=== PATIENT | female | born 1990 | race Caucasian/White ===

== ENCOUNTER 2016-11-06 09:53 | Emergency (ER) | payer BC, MEDICAID ==
[2016-11-06] MEDS ORDERED: IPRATROPIUM/ALBUTEROL 3 ML NEB INH ONE (10:24)
[2016-11-06] MEDS ORDERED: IPRATROPIUM/ALBUTEROL 3 ML NEB INH STA (10:35)
[2016-11-06] MEDS ORDERED: DEXAMETHASONE 10 MG/ML VIAL PO STA (10:36)
--- NOTE | 2016-11-06 10:37 | ED Physician Documentation ---
PD HPI DYSPNEA - Stated complaint Stated Complaint: cough - Chief complaint Chief Complaint: Resp - History obtained from History obtained from: Patient, Family - History of Present Illness Timing - onset during: Rest Timing - duration: Days Timing - details: Gradual onset, Still present Inciting event(s): URI Improved by: Inhaler/neb Worsened by: Exertion, Coughing Associated symptoms: Cough, Wheezing, Chest pain / discomfort Similar symptoms before: Diagnosis (asthma) Recently seen: Not recently seen Review of Systems Constitutional: denies: Fever, Chills Eyes: denies: Decreased vision Ears: denies: Ear pain Nose: reports: Rhinorrhea / runny nose, Congestion Throat: denies: Sore throat Cardiac: reports: Chest pain / pressure. 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 - Present Medications Home Medications: Ambulatory Orders Medication Instructions Recorded Confirmed Albuterol Sulfate [Proventil Hfa 1 - 2 puffs IH Q4H PRN #1 03/17/16 11/06/16 Inhaler] [email or web address] traZODone [Desyrel] 50 mg PO DAILY 03/17/16 03/17/16 Albuterol Sulf [Ventolin Hfa 1 - 2 puffs INH Q4HR PRN #1 inhaler 11/06/16 Inhaler] Azithromycin [Zithromax] 250 mg PO DAILY #6 tablet 11/06/16 Benzonatate [Tessalon] 100 - 200 mg PO TID PRN #20 capsule 11/06/16 Lamotrigine 25 mg DAILY 11/06/16 11/06/16 Topiramate [Topamax] 50 mg BID 11/06/16 11/06/16 predniSONE [Deltasone] 10 mg PO DAILY #26 tablet 11/06/16 - Allergies Allergies/Adverse Reactions: Allergies Allergy/AdvReac Type Severity Reaction Status Date / Time amoxicillin Allergy Rash Verified 03/17/16 12:36 - Social History Does the pt smoke?: No Smoking Status: Never smoker Does the pt drink ETOH?: No Does the pt have substance abuse?: No - Immunizations Immunizations are current?: Yes PD ED PE NORMAL - Vitals Vital signs reviewed: Yes (tachy ) - General General: Alert and oriented X 3, No acute distress, Well developed/nourished - HEENT HEENT: Atraumatic, PERRL, EOMI, Other (mild inflamtion normal landmarks ) - Neck Neck: Supple, no meningeal sign, No bony TTP - Cardiac Cardiac: RRR, No murmur - Respiratory Respiratory: No respiratory distress, Other (diminished breath sounds. ) - Abdomen Abdomen: Soft, Non tender - Back Back: No CVA TTP, No spinal TTP - Derm Derm: Normal color, No rash - Extremities Extremities: No deformity, No edema - Neuro Neuro: No motor deficit, No sensory deficit - Psych Psych: Normal mood, Normal affect Results - Vitals Vitals: Vital Signs - 24 hr 11/06/16 11/06/16 11/06/16 10:00 12:25 13:27 Temperature 36.7 C Heart Rate 114 H 96 92 Respiratory 20 14 16 Rate Blood Pressure 116/71 96/64 106/57 L O2 Saturation 98 98 98 Oxygen O2 Source Room air - Rads (name of study) 2 veiw chest Radiology: Prelim report reviewed (Impression: Normal chest for age and body size, stable. No hyperinflation, increased bronchovascular markings or other findings to suggest asthma or reactive airway disease.), EMP read indepedently, See rad report PD MEDICAL DECISION MAKING - ED course Complexity details: reviewed old records, reviewed results, re-evaluated patient , considered differential, d/w patient, d/w family ED course: 26 y/o female with a history of asthma has developed a cough productive of thick phlem and shortness of breath. Her lung exam is notable for shallow breathing and her response to the treatment is not impressive. I suspect she is splinting with her breathing to prevent a cough response as this hurts to cough. She is placed on a course of prednisone and zithromax as well as tessalon . Departure - Departure Disposition: 01 Home, Self Care Clinical Impression: Bronchitis Asthma Qualifiers: Asthma severity: moderate persistent Asthma complication type: with acute exacerbation Qualified Code(s): J45.41 - Moderate persistent asthma with (acute ) exacerbation Condition: Stable Instructions: ED Bronchitis Asthmatic Follow-Up: Ron Killian MD [Primary Care Provider] - Prescriptions: Albuterol Sulf [Ventolin Hfa Inhaler] 1 - 2 puffs INH Q4HR PRN #1 inhaler PRN Reason: Shortness Of Air/Wheezing predniSONE [Deltasone] 10 mg PO DAILY #26 tablet Benzonatate [Tessalon] 100 - 200 mg PO TID PRN #20 capsule PRN Reason: Cough Azithromycin [Zithromax] 250 mg PO DAILY #6 tablet
[2016-11-06] MEDS ORDERED: DEXAMETHASONE 10 MG/ML VIAL ONE (10:53)
[2016-11-06] MEDS ORDERED: CHERRY SYRUP 10 ML UDC PO ONE (10:53)
--- NOTE | 2016-11-06 11:20 | XRAY Preliminary Report ---
Exam: XR Chest 2 View PA/LAT IMPRESSION: Normal chest for age and body size, stable. No hyperinflation, increased bronchovascular markings or other findings suggesting asthma/reactive airway disease. [facility] SITE ID: [id number]
--- NOTE | 2016-11-06 11:22 | XRAY Report ---
EXAM: CHEST RADIOGRAPHY, 2 VIEWS EXAM DATE: 11/06/2016 10:51 AM. CLINICAL HISTORY: Cough and wheezing in a 25-year-old female with history of asthma. COMPARISON: 03/17/2016 and previous. TECHNIQUE: Upright PA and lateral views. FINDINGS: Lungs/Pleura: No focal opacities evident. No pleural effusion. No pneumothorax. Normal volumes. Mediastinum: Heart and mediastinal contours are unremarkable. No adenopathy or pulmonary vascular con gestion. Other: Trachea is midline. Osseous structures are unremarkable. IMPRESSION: Normal chest for age and body size, stable. No hyperinflation, increased bronchovascular markings or other findings suggesting asthma/reactive airway disease. [facility] Referring Provider Line: [phone] SITE ID: [id number]
[2016-11-06 13:28] VITALS: BP 106/57
== END 2016-11-06 13:22 | disposition home or self-care (01) ==
LOC: ED 09:53
DX: J40 Bronchitis, not specified as acute or chronic (principal); J45.41 Moderate persistent asthma with (acute) exacerbation; Z87.01 Personal history of pneumonia (recurrent)
CPT/HCPCS: 71020; 94640; 99283; A9270; J7620

== ENCOUNTER 2017-01-12 08:14 | Outpatient (CLI) | payer BC | END 2017-01-12 08:15 | disposition home or self-care (01) | LOC: LAB.N 08:14 | PROVIDERS: ATTEND Family Medicine | DX: Z77.21 Contact with and (suspected) exposure to potentially hazardous body fluids (principal) | CPT/HCPCS: 36415; 86317; 86704; 86709; 86803; 87340; 87389 ==

== ENCOUNTER 2017-01-12 10:03 | Outpatient (CLI) | payer BC | END 2017-01-12 10:04 | disposition critical access hospital (66) | LOC: EMS 10:03 | PROVIDERS: ATTEND Surgery | DX: R55 Syncope and collapse (principal); R51 Headache | CPT/HCPCS: A0425; A0429 ==

== ENCOUNTER 2017-01-12 10:20 | Emergency (ER) | payer BC ==
[2017-01-12 11:42] LABS: BILIRUBIN,URINE NEGATIVE (NEGATIVE)
[2017-01-12 11:44] LABS: UA w/ MICROSCOPIC CHARGE YES
[2017-01-12 11:45] LABS: HCG UR QUAL NEGATIVE
[2017-01-12] MEDS ORDERED: SODIUM CHLORIDE 0.9% 1,000 ML IV ONE (11:49)
[2017-01-12 11:51] LABS: UR CULTURE IF IND NOT INDICATED
[2017-01-12 12:20] LABS: BASOPHILS # (AUTO) 0.1 10^3/uL (0.0-0.1); BASOPHILS % (AUTO) 0.8 %; EOSINOPHILS # (AUTO) 0.6 10^3/uL (0.0-0.7); EOSINOPHILS % (AUTO) 6.6 %; HCT - HEMATOCRIT 41.6 % (37.0-47.0); HGB - HEMOGLOBIN 13.9 g/dL (12.0-16.0); LYMPHOCYTES # (AUTO) 2.6 10^3/uL (1.5-3.5); LYMPHOCYTES % (AUTO) 30.1 %; MEAN CORPUSCULAR HEMOGLOBIN 29.4 pg (27.0-31.0); MEAN CORPUSCULAR HGB CONC 33.4 g/dL (32.0-36.0); MEAN CORPUSCULAR VOLUME 87.9 fL (81.0-99.0); MEAN PLATELET VOLUME 7.4 fL (7.9-10.8); MONOCYTES # (AUTO) 0.6 10^3/uL (0.0-1.0); MONOCYTES % (AUTO) 6.5 %; NEUTROPHILS # (AUTO) 4.9 10^3/uL (1.5-6.6); RED BLOOD COUNT 4.74 10^6/uL (4.20-5.40); RED CELL DISTRIBUTION WIDTH 13.3 % (12.0-15.0); UNCORRECTED WHITE BLOOD COUNT 8.7 x10^3/uL; WHITE BLOOD COUNT 8.7 x10^3/uL (4.8-10.8)
[2017-01-12 12:31] LABS: ALBUMIN/GLOBULIN RATIO 1.7 (1.0-2.2); BILIRUBIN,TOTAL 0.7 mg/dL (0.2-1.0); CALCIUM 9.4 mg/dL (8.5-10.3); CREATININE 0.6 mg/dL (0.4-1.0); TOTAL PROTEIN 7.1 g/dL (6.7-8.2)
[2017-01-12] MEDS ORDERED: ONDANSETRON 4 MG/2 ML VIAL IVP STA (12:44)
[2017-01-12] MEDS ORDERED: NITROFURANTOIN MACRO 100 MG CAPSULE PO STA (12:44)
[2017-01-12] MEDS ORDERED: NITROFURANTOIN MACRO 100 MG CAPSULE PO ONE (13:13)
[2017-01-12] MEDS ORDERED: ONDANSETRON 4 MG/2 ML VIAL ONE (13:14)
--- NOTE | 2017-01-12 14:17 | ED Physician Documentation ---
PD HPI SYNCOPE - Stated complaint Stated Complaint: SYNCOPE - Chief complaint Chief Complaint: Neuro - History obtained from History obtained from: Patient, EMS - History of Present Illness Witnessed: Witnessed Timing - onset: Today (Just prior to arrival) Duration: Seconds Preceding symptoms: Nausea / vomiting (Nausea, without vomiting.), Light headed Associated symptoms: No: Seizure, Incontinant of urine, Chest pain, Palpitations , Abdominal pain Injury occurred: None Similar symptoms before: No diagnosis (She reports having a long history of fainting spells.) - Additional information Additional information: The patient is a 26-year-old female who arrives via ambulance after a witnessed syncopal episode while in class just prior to arrival. She had lightheadedness and nausea prior to the onset of her symptoms. She denies chest pain, palpitations, shortness of breath. She had undergone blood draw for lab work one hour previously. She had become lightheaded and "dizzy" during the lab draw. It was thought to be a vasovagal episode. However it was one hour later that she passed out while sitting in class. She reports having low-grade fever to 101 2 days ago, with associated chills. She had vomiting 2 yesterday. She reports having dysuria and frequency of urination for the past 2 weeks. She denies abdominal pain, cough, or diarrhea. Her last menstrual period was one week ago. She was seen by her primary physician yesterday, and lab work was ordered for today. The patient reports having a long history of similar "fainting spells". She denies history of seizures. Review of Systems Constitutional: reports: Fever (2 days ago), Chills (2 days ago) Ears: denies: Ear pain Nose: denies: Congestion Throat: denies: Sore throat Cardiac: denies: Chest pain / pressure, Palpitations Respiratory: denies: Dyspnea, Cough GI: reports: Nausea, Vomiting (yesterday). denies: Abdominal Pain : reports: Dysuria, Frequency, LMP (1 week ago) Skin: denies: Rash Musculoskeletal: denies: Back pain Neurologic: reports: Syncope. 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 - Present Medications Home Medications: Ambulatory Orders Medication Instructions Recorded Confirmed traZODone [Desyrel] 50 mg PO DAILY 03/17/16 01/12/17 Albuterol Sulf [Ventolin Hfa 1 - 2 puffs INH Q4HR PRN #1 inhaler 11/06/16 Inhaler] Lamotrigine 100 mg DAILY 11/06/16 01/12/17 Topiramate [Topamax] 50 mg BID 11/06/16 01/12/17 Fluconazole [Diflucan] 150 mg PO ONCE #1 tablet 01/12/17 Nitrofurantoin [Macrobid] 100 mg PO BID #10 capsule 01/12/17 - Allergies Allergies/Adverse Reactions: Allergies Allergy/AdvReac Type Severity Reaction Status Date / Time amoxicillin Allergy Rash Verified 01/12/17 10:29 - Social History Does the pt smoke?: No Smoking Status: Never smoker Does the pt drink ETOH?: No Does the pt have substance abuse?: No - Immunizations Immunizations are current?: Yes PD ED PE NORMAL - Vitals Vital signs reviewed: Yes (normal) - General General: Alert and oriented X 3, Well developed/nourished - HEENT HEENT: Atraumatic, EOMI, Pharynx benign - Neck Neck: Supple, no meningeal sign, No adenopathy - Cardiac Cardiac: RRR, No murmur - Respiratory Respiratory: No respiratory distress, Clear bilaterally - Abdomen Abdomen: Soft, Non tender, No organomegaly - Back Back: No CVA TTP - Derm Derm: No rash - Extremities Extremities: No edema, No calf tenderness / cord - Neuro Neuro: Alert and oriented X 3, No motor deficit, No sensory deficit, Normal speech Results - Vitals Vitals: Vital Signs - 24 hr 01/12/17 01/12/17 12:35 14:20 Heart Rate 76 Heart Rate [ 77 Sitting] Heart Rate [ 86 Standing] Heart Rate [ 71 Supine] Respiratory 18 Rate Blood Pressure 107/61 Blood Pressure 104/68 [Sitting] Blood Pressure 102/81 H [Standing] Blood Pressure 101/61 [Supine] O2 Saturation 100 Oxygen O2 Source Room air - Labs Labs: Laboratory Tests 01/12/17 01/12/17 01/12/17 11:06 11:06 12:12 WBC 8.7 RBC 4.74 Hgb 13.9 Hct 41.6 MCV 87.9 MCH 29.4 MCHC 33.4 RDW 13.3 Plt Count 302 MPV 7.4 L Neut # 4.9 Lymph # 2.6 [place] # 0.6 Eos # 0.6 Baso # 0.1 Absolute Nucleated RBC 0.00 Nucleated RBCs 0.0 Sodium Potassium Chloride Carbon Dioxide Anion Gap BUN Creatinine Estimated GFR (MDRD) Glucose Calcium Total Bilirubin AST ALT Alkaline Phosphatase Total Protein Albumin Globulin Albumin/Globulin Ratio Lipase Urine Color YELLOW Urine Clarity HAZY Urine pH 6.0 Ur Specific [place] 1.010 1.010 Urine Protein NEGATIVE Urine Glucose (UA) NEGATIVE Urine Ketones NEGATIVE Urine Occult Blood SMALL H Urine Nitrite NEGATIVE Urine Bilirubin NEGATIVE Urine Urobilinogen 0.2 (NORMAL) Ur Leukocyte Esterase NEGATIVE Urine RBC 0-5 Urine WBC 4-5 Ur Squamous Epith Cells MANY Squamous H Urine Bacteria Many H Ur Microscopic Review INDICATED Urine Culture Comments NOT INDICATED Urine HCG, Qual NEGATIVE 01/12/17 12:12 WBC RBC Hgb Hct MCV MCH MCHC RDW Plt Count MPV Neut # Lymph # [place] # Eos # Baso # Absolute Nucleated RBC Nucleated RBCs Sodium 141 Potassium 4.0 Chloride 107 Carbon Dioxide 28 Anion Gap 6.0 BUN 11 Creatinine 0.6 Estimated GFR (MDRD) 120 Glucose 83 Calcium 9.4 Total Bilirubin 0.7 AST 20 ALT 24 Alkaline Phosphatase 62 Total Protein 7.1 Albumin 4.5 Globulin 2.6 Albumin/Globulin Ratio 1.7 Lipase 33 Urine Color Urine Clarity Urine pH Ur Specific [place] Urine Protein Urine Glucose (UA) Urine Ketones Urine Occult Blood Urine Nitrite Urine Bilirubin Urine Urobilinogen Ur Leukocyte Esterase Urine RBC Urine WBC Ur Squamous Epith Cells Urine Bacteria Ur Microscopic Review Urine Culture Comments Urine HCG, Qual PD MEDICAL DECISION MAKING - ED course Complexity details: reviewed results, re-evaluated patient, considered differential, d/w patient ED course: The patient's presentation is significant for a brief syncopal episode, associated with dehydration, and likely urinary tract infection. Her presentation does not suggest seizure, bacteremia, or pyelonephritis. CBC is normal, as is chemistry panel. Her urinalysis is positive for bacteriuria, but also with presence of squamous epithelial cells. Given her symptoms with recent dysuria, frequency of urination, and low-grade fever, I will initiate treatment for suspected urinary tract infection, pending urine culture results. Treatment in the emergency department included administration of normal saline 1 L IV, Zofran 4 mg IV, and Macrobid 100 mg orally. She is being discharged with prescription for Macrobid. I discussed with her and her family the results of her lab workup, outpatient treatment and follow-up, as well as potentially worrisome signs or symptoms that should prompt reevaluation in the emergency department. Departure - Departure Disposition: Home, Self Care Clinical Impression: Syncope Qualifiers: Syncope type: unspecified Qualified Code(s): R55 - Syncope and collapse Urinary tract infection Qualifiers: Urinary tract infection type: acute cystitis Hematuria presence: without hematuria Qualified Code(s): N30.00 - Acute cystitis without hematuria Condition: Stable Instructions: ED Dizziness UKO, ED UTI Cystitis Female Follow-Up: Ron Killian MD [Credentialed Staff Provider] - Prescriptions: Fluconazole [Diflucan] 150 mg PO ONCE #1 tablet Nitrofurantoin [Macrobid] 100 mg PO BID #10 capsule Comments: Drink plenty of fluids, including cranberry juice. Take Macrobid twice daily as prescribed. You can use Diflucan as prescribed if needed for yeast infection associated with taking the antibiotic. Follow up with your primary physician within 1-2 weeks. Call to schedule appointment. Return to the emergency department if you develop increasing dizziness, fever with shaking chills, persistent vomiting, or otherwise worsening symptoms. Forms: Activity restrictions Discharge Date/Time: 01/12/17 14:35
[2017-01-12 14:34] VITALS: BP 101/61
== END 2017-01-12 14:35 | disposition home or self-care (01) ==
LOC: EDUNIT# → ED 10:20
DX: R55 Syncope and collapse (principal); N30.00 Acute cystitis without hematuria; F50.9 Eating disorder, unspecified; J45.909 Unspecified asthma, uncomplicated
CPT/HCPCS: 36415; 80053; 81001; 81025; 83690; 85025; 86317; 86704; 86709; 86803; 87340; 87389; 93005; 96361; 96374; 99284; A9270; 81003; 87086

== ENCOUNTER 2017-03-05 09:48 | Emergency (ER) | payer BC, OTHER ==
[2017-03-05 10:11] LABS: BILIRUBIN,URINE NEGATIVE (NEGATIVE)
[2017-03-05 10:15] LABS: HCG UR QUAL NEGATIVE; UA w/ MICROSCOPIC CHARGE YES
[2017-03-05 10:21] LABS: UR CULTURE IF IND NOT INDICATED; WBC,URINE >25 /HPF (0-5)
[2017-03-05] MEDS ORDERED: MORPHINE 2 MG/ML SYRINGE IVP STA (12:12)
[2017-03-05] MEDS ORDERED: SODIUM CHLORIDE 0.9% 1,000 ML IV ONE (12:14)
[2017-03-05] MEDS ORDERED: ONDANSETRON 4 MG/2 ML VIAL IVP STA (12:14)
[2017-03-05] MEDS ORDERED: ONDANSETRON 4 MG/2 ML VIAL ONE (12:28)
[2017-03-05] MEDS ORDERED: MORPHINE 2 MG/ML SYRINGE ONE (12:28)
[2017-03-05] MEDS ORDERED: SODIUM CHLORIDE FLUSH 0.9% 10 ML SYRINGE IVP ONE (12:29)
[2017-03-05 12:36] LABS: BASOPHILS # (AUTO) 0.1 10^3/uL (0.0-0.1); BASOPHILS % (AUTO) 0.5 %; EOSINOPHILS % (AUTO) 8.4 %; HCT - HEMATOCRIT 40.3 % (37.0-47.0); HGB - HEMOGLOBIN 13.6 g/dL (12.0-16.0); LYMPHOCYTES # (AUTO) 3.4 10^3/uL (1.5-3.5); LYMPHOCYTES % (AUTO) 27.6 %; MEAN CORPUSCULAR HEMOGLOBIN 29.7 pg (27.0-31.0); MEAN CORPUSCULAR HGB CONC 33.7 g/dL (32.0-36.0); MEAN CORPUSCULAR VOLUME 88.2 fL (81.0-99.0); MEAN PLATELET VOLUME 6.9 fL (7.9-10.8); MONOCYTES # (AUTO) 0.9 10^3/uL (0.0-1.0); MONOCYTES % (AUTO) 7.5 %; RED BLOOD COUNT 4.57 10^6/uL (4.20-5.40); RED CELL DISTRIBUTION WIDTH 12.7 % (12.0-15.0); UNCORRECTED WHITE BLOOD COUNT 12.5 x10^3/uL; WHITE BLOOD COUNT 12.5 x10^3/uL (4.8-10.8)
[2017-03-05 12:49] LABS: ALBUMIN/GLOBULIN RATIO 1.4 (1.0-2.2); BILIRUBIN,TOTAL 0.6 mg/dL (0.2-1.0); CALCIUM 9.5 mg/dL (8.5-10.3); CREATININE 0.7 mg/dL (0.4-1.0); POTASSIUM 3.5 mmol/L (3.5-5.0); TOTAL PROTEIN 7.6 g/dL (6.7-8.2)
--- NOTE | 2017-03-05 13:48 | CT Preliminary Report ---
Exam: CT Abdomen/Pelvis W/O IMPRESSION: 1. No calculi or evidence of obstruction along the right genitourinary tract. Within the limits of no ncontrast examination, no alternative process identified to explain right flank and right lower quadr ant pain. 2. Two tiny calcifications within the left pelvis, not convincingly within the ureter, possibly phleb oliths. No hydronephrosis or hydroureter. [facility] SITE ID: [id number]
--- NOTE | 2017-03-05 13:51 | CT Report ---
EXAM: CT ABDOMEN AND PELVIS (CT KUB) EXAM DATE: 03/05/2017 01:01 PM. CLINICAL HISTORY: Right flank to right lower quadrant pain. Hematuria. COMPARISONS: None. TECHNIQUE: Routine axial helical CT imaging was performed through the abdomen and pelvis without IV c ontrast. Reconstructions: Coronal and sagittal. In accordance with CT protocol optimization, one or more of the following dose reduction techniques w ere utilized for this exam: automated exposure control, adjustment of mA and/or KV based on patient s ize, or use of iterative reconstructive technique. FINDINGS: Lung Bases: Unremarkable. Right Kidney/Ureter: No stones, hydronephrosis, or hydroureter. No perinephric fat stranding. Left Kidney/Ureter: Two tiny calcifications in the left pelvis (axial images 128 and 131), not convin cingly within the ureter. No ureteral dilatation. No renal calculi or hydronephrosis. No perinephric fat stranding. Other Solid Organs: Noncontrast images of the solid organs are grossly unremarkable. Gallbladder/Bile Ducts: Unremarkable. Peritoneal Cavity: The bowel is grossly unremarkable, without evident focal wall thickening or adjace nt mesenteric fat stranding to suggest acute inflammatory process, or evidence of bowel obstruction. The appendix is normal. No free fluid, pneumoperitoneum, or patricia adenopathy. Pelvic Organs: No bladder stones or wall thickening. IUD within the uterus. Noncontrast images of the visualized pelvic organs are otherwise unremarkable. Vasculature: Unremarkable. Bones: Normal. Other: None. IMPRESSION: 1. No calculi or evidence of obstruction along the right genitourinary tract. Within the limits of no ncontrast examination, no alternative process identified to explain right flank and right lower quadr ant pain. 2. Two tiny calcifications within the left pelvis, not convincingly within the ureter, possibly phleb oliths. No hydronephrosis or hydroureter. [facility] Referring Provider Line: [phone] SITE ID: [id number]
[2017-03-05 14:21] VITALS: BP 102/65
[2017-03-05] MEDS ORDERED: SULFAMETH/TRIMETH DS 800/160 MG TABLET PO STA (14:25)
[2017-03-05] MEDS ORDERED: KETOROLAC 60 MG/2 ML VIAL IVP STA (14:25)
--- NOTE | 2017-03-05 14:28 | ED Physician Documentation ---
History of Present Illness - Stated complaint Stated Complaint: SIDE/BACK PX BLOOD IN URINE - Chief complaint Chief Complaint: Abd Pain - Additonal information Additional information: hx from pt healthy 26 y/o female one weeks of pain started mid to upper right back then moved to right flank and then RLQ and now is quite severe and she has developed hematuria and dysuria and abd bloating and temp to 100 no vag bleed or dc LMP 2 months ago- has mirena Review of Systems Constitutional: reports: Fever Cardiac: denies: Chest pain / pressure Respiratory: denies: Dyspnea, Cough GI: reports: Abdominal Pain. denies: Diarrhea : reports: Dysuria, Hematuria. 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 - Present Medications Home Medications: Ambulatory Orders Medication Instructions Recorded Confirmed traZODone [Desyrel] 50 mg PO DAILY 03/17/16 03/05/17 Albuterol Sulf [Ventolin Hfa 1 - 2 puffs INH Q4HR PRN #1 inhaler 11/06/16 Inhaler] Lamotrigine 100 mg DAILY 11/06/16 03/05/17 Topiramate [Topamax] 50 mg BID 11/06/16 03/05/17 Ibuprofen [Motrin] 400 mg PO Q6H PRN #20 tablet 03/05/17 Ondansetron Odt [Zofran] 4 mg TL Q6H PRN #10 tablet 03/05/17 Phenazopyridine [Pyridium] 100 mg PO Q8H PRN #9 tablet 03/05/17 Sulfamethoxazole/Trimethoprim 1 each PO BID #9 tablet 03/05/17 [Bactrim 400-80 mg Tablet] traMADol [Ultram] 50 mg PO Q6H PRN #10 tablet 03/05/17 - Allergies Allergies/Adverse Reactions: Allergies Allergy/AdvReac Type Severity Reaction Status Date / Time amoxicillin Allergy Rash Verified 03/05/17 10:04 - Social History Does the pt smoke?: No Smoking Status: Never smoker Does the pt drink ETOH?: No Does the pt have substance abuse?: No - Immunizations Immunizations are current?: Yes PD ED PE NORMAL - Vitals Vital signs reviewed: Yes - General General: Alert and oriented X 3 - HEENT HEENT: PERRL - Neck Neck: Supple, no meningeal sign - Cardiac Cardiac: RRR - Respiratory Respiratory: No respiratory distress, Clear bilaterally - Abdomen Abdomen: Soft, Other (mild distension + BS sig TTP to lower abd R > with some vol rebound) - Back Back: Other (+ R CVA TTP) - Derm Derm: Normal color - Neuro Neuro: Alert and oriented X 3 Results - Vitals Vitals: Vital Signs - 24 hr 03/05/17 03/05/17 03/05/17 10:01 11:59 13:08 Temperature 36.6 C 36.7 C 36.2 C L Heart Rate 110 H 99 81 Respiratory 16 16 14 Rate Blood Pressure 124/74 123/71 102/66 O2 Saturation 99 99 100 03/05/17 14:21 Temperature Heart Rate 75 Respiratory 16 Rate Blood Pressure 102/65 O2 Saturation 99 Oxygen O2 Source Room air - Labs Labs: Laboratory Tests 03/05/17 03/05/17 03/05/17 10:00 12:25 12:25 WBC 12.5 H RBC 4.57 Hgb 13.6 Hct 40.3 MCV 88.2 MCH 29.7 MCHC 33.7 RDW 12.7 Plt Count 287 MPV 6.9 L Neut # 7.0 H Lymph # 3.4 [place] # 0.9 Eos # 1.0 H Baso # 0.1 Absolute Nucleated RBC 0.00 Nucleated RBCs 0.0 Sodium 140 Potassium 3.5 Chloride 103 Carbon Dioxide 26 Anion Gap 11.0 BUN 16 Creatinine 0.7 Estimated GFR (MDRD) 100 Glucose 90 Calcium 9.5 Total Bilirubin 0.6 AST 24 ALT 34 Alkaline Phosphatase 72 Total Protein 7.6 Albumin 4.4 Globulin 3.2 Albumin/Globulin Ratio 1.4 Lipase 27 Urine Color YELLOW Urine Clarity CLEAR Urine pH 6.0 Ur Specific [place] 1.020 Urine Protein TRACE Urine Glucose (UA) NEGATIVE Urine Ketones NEGATIVE Urine Occult Blood LARGE H Urine Nitrite NEGATIVE Urine Bilirubin NEGATIVE Urine Urobilinogen 0.2 (NORMAL) Ur Leukocyte Esterase SMALL H Urine RBC 6-10 H Urine WBC >25 H Ur Squamous Epith Cells MANY Squamous H Urine Bacteria Moderate H Urine Mucus Moderate Strands Ur Microscopic Review INDICATED Urine Culture Comments NOT INDICATED Urine HCG, Qual NEGATIVE - Rads (name of study) CT abd pelvis Radiology: Other (ppendix seen and normal, no R ureteral calculi) PD MEDICAL DECISION MAKING - ED course ED course: sx most c/w pyelo but pt with sig RLQ TTP on exam and hematuria so got CT which thankfully showd no appy and no ureteral stones no vag dc to suggest PID, pt denies any chance STDs, and that would be unlikely to start with R flank pain - did add on GC chlamydia to urine will tx for pyelo and dc to fup PMD for recheck this week Departure - Departure Disposition: Home, Self Care Clinical Impression: Pyelonephritis Condition: Good Instructions: ED Kidney Infec Female Follow-Up: Ron Killian MD [Primary Care Provider] - Prescriptions: Sulfamethoxazole/Trimethoprim [Bactrim 400-80 mg Tablet] 1 each PO BID #9 tablet Ibuprofen [Motrin] 400 mg PO Q6H PRN #20 tablet PRN Reason: Pain Phenazopyridine [Pyridium] 100 mg PO Q8H PRN #9 tablet PRN Reason: painful urination traMADol [Ultram] 50 mg PO Q6H PRN #10 tablet PRN Reason: Severe Pain Ondansetron Odt [Zofran] 4 mg TL Q6H PRN #10 tablet PRN Reason: Nausea / Vomiting Comments: The CT scan showed a normal appendix and no kidney stones on the right Forms: Activity restrictions
[2017-03-05] MEDS ORDERED: SULFAMETH/TRIMETH DS 800/160 MG TABLET PO ONE (14:42)
[2017-03-05] MEDS ORDERED: KETOROLAC 30 MG/ML VIAL ONE (14:42)
== END 2017-03-05 15:06 | disposition home or self-care (01) ==
LOC: ED 09:48
DX: N12 Tubulo-interstitial nephritis, not specified as acute or chronic (principal); J45.909 Unspecified asthma, uncomplicated
CPT/HCPCS: 36415; 74176; 80053; 81001; 81025; 83690; 85025; 87491; 87591; 96374; 96375; 99283; 99284; A9270; J2270; 81003; 87086

== ENCOUNTER 2017-06-21 08:00 | Outpatient (CLI) | payer OTHER ==
[2017-06-21 19:40] LABS: BILIRUBIN,URINE NEGATIVE (NEGATIVE); GLUCOSE, URINE (UA) NEGATIVE (NEGATIVE); KETONES,URINE (UA) NEGATIVE (NEGATIVE); LEUKOCYTE ESTERASE, URINE NEGATIVE (NEGATIVE); NITRITE,URINE NEGATIVE (NEGATIVE); OCCULT BLOOD,URINE SMALL (NEGATIVE); PROTEIN,URINE NEGATIVE (NEGATIVE); UROBILINOGEN,URINE 0.2 (NORMAL) E.U./dL (NORMAL)
[2017-06-21 19:43] LABS: CLARITY,URINE CLEAR (CLEAR)
[2017-06-21 20:05] LABS: BACTERIA,URINE Few /HPF (None Seen); MUCUS,URINE Few Strands; RBC,URINE 0-5 /HPF (0-5); SQUAMOUS EPITHELIAL CELL,UR MOD Squamous (<= Few)
== END 2017-06-21 08:01 | disposition home or self-care (01) ==
LOC: LAB.R 08:00
PROVIDERS: ATTEND Family Medicine
DX: R31.9 Hematuria, unspecified (principal)
CPT/HCPCS: 81001; 87086

== ENCOUNTER 2017-07-12 09:29 | Emergency (ER) | payer OTHER ==
--- NOTE | 2017-07-12 10:24 | XRAY Report ---
EXAM: LEFT HAND RADIOGRAPHY EXAM DATE: 07/12/2017 10:17 AM. CLINICAL HISTORY: Dropped 40 pound weight on hand now with pain and bleeding index finger COMPARISON: None. TECHNIQUE: 3 views. FINDINGS: Bones: No fractures or bone lesions. Joints: No subluxations. Soft Tissues: No soft tissue swelling. IMPRESSION: Negative left hand radiography. No left index finger abnormality is seen. [facility] Referring Provider Line: [phone] SITE ID: [id number]
--- NOTE | 2017-07-12 10:57 | ED Physician Documentation ---
PD HPI UPPER EXT INJURY - Stated complaint Stated Complaint: FINGER INJURY - Chief complaint Chief Complaint: Laceration - History obtained from History obtained from: Patient - History of Present Illness Location: Left, Finger (index and middle) Type of injury: Blunt / blow Where injury occurred: Home Timing - onset: Today Timing - duration: Hours Timing - details: Abrupt onset, Still present Improved by: Rest, Ice, Immobilization Worsened by: Moving, Palpating Contributing factors: No: Anticoagulated Similar symptoms before: Has not had sx before Recently seen: Not recently seen - Additonal information Additional information: 26-year-old female dropped a weight on her left hand over the index finger and the weight rolled onto her middle finger. She has pain over the dorsum of the left index finger over the proximal and distal interphalangeal joints and the nail. Review of Systems Constitutional: denies: Fever Eyes: denies: Decreased vision Ears: denies: Ear pain Nose: denies: Congestion Respiratory: denies: Cough GI: denies: Vomiting : denies: Dysuria Musculoskeletal: reports: Extremity pain. 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 - Present Medications Home Medications: Ambulatory Orders Medication Instructions Recorded Confirmed traZODone [Desyrel] 50 mg PO DAILY 03/17/16 03/05/17 Albuterol Sulf [Ventolin Hfa 1 - 2 puffs INH Q4HR PRN #1 inhaler 11/06/16 Inhaler] Topiramate [Topamax] 50 mg BID 11/06/16 03/05/17 lamoTRIgine [Lamotrigine] 100 mg DAILY 11/06/16 03/05/17 Ibuprofen [Motrin] 400 mg PO Q6H PRN #20 tablet 03/05/17 Ondansetron Odt [Zofran] 4 mg TL Q6H PRN #10 tablet 03/05/17 Phenazopyridine [Pyridium] 100 mg PO Q8H PRN #9 tablet 03/05/17 Sulfamethoxazole/Trimethoprim 1 each PO BID #9 tablet 03/05/17 [Bactrim 400-80 mg Tablet] traMADol [Ultram] 50 mg PO Q6H PRN #10 tablet 03/05/17 - Allergies Allergies/Adverse Reactions: Allergies Allergy/AdvReac Type Severity Reaction Status Date / Time amoxicillin Allergy Rash Verified 07/12/17 09:38 - Social History Does the pt smoke?: No Smoking Status: Never smoker Does the pt drink ETOH?: No Does the pt have substance abuse?: No - Immunizations Immunizations are current?: Yes PD ED PE NORMAL - Vitals Vital signs reviewed: Yes (tachy ) - General General: Alert and oriented X 3, No acute distress, Well developed/nourished - HEENT HEENT: Atraumatic, PERRL, EOMI - Respiratory Respiratory: No respiratory distress - Derm Derm: Normal color, Warm and dry, No rash - Extremities Extremities: No deformity, No edema, Other (There is point tenderness to the dorsum of the left index finger and the nail is partially avulsed. She is able to flex and extend at both joints but with pain. There is less involvement of the middle finger. ) - Neuro Neuro: Alert and oriented X 3, No motor deficit, No sensory deficit, Normal speech Eye Opening: Spontaneous Motor: Obeys Commands Verbal: Oriented GCS Score: 15 - Psych Psych: Normal mood, Normal affect Results - Vitals Vitals: Vital Signs - 24 hr 07/12/17 09:31 Temperature 36.3 C L Heart Rate 105 H Respiratory 20 Rate Blood Pressure 123/68 O2 Saturation 99 Oxygen O2 Source Room air - Rads (name of study) left hand Radiology: Prelim report reviewed (Impression: Negative left hand radiography. No left index finger abnormality seen.), EMP read indepedently, See rad report PD MEDICAL DECISION MAKING - ED course Complexity details: reviewed results, re-evaluated patient, considered differential, d/w patient ED course: 26-year-old female with a finger contusion has a partial avulsion of the index finger nail and no evidence of fracture. She is placed into a volar finger splint with the index and middle cruz taped. Departure - Departure Disposition: Home, Self Care Clinical Impression: Nail avulsion, finger Qualifiers: Encounter type: initial encounter Qualified Code(s): S61.309A - Unspecified open wound of unspecified finger with damage to nail, initial encounter Finger contusion Qualifiers: Encounter type: initial encounter Finger: index finger Damage to nail status: with damage Laterality: left Qualified Code(s): S60.122A - Contusion of left index finger with damage to nail, initial encounter Condition: Stable Instructions: ED Sprain Hand, ED Avulsion Nail Complete Follow-Up: Ron Killian MD [Primary Care Provider] -
[2017-07-12 11:14] VITALS: BP 118/74
== END 2017-07-12 11:15 | disposition home or self-care (01) ==
LOC: ED 09:29
DX: S60.122A Contusion of left index finger with damage to nail, initial encounter (principal); W20.8XXA Other cause of strike by thrown, projected or falling object, initial encounter; Y92.009 Unspecified place in unspecified non-institutional (private) residence as the place of occurrence of the external cause
CPT/HCPCS: 99283

== ENCOUNTER 2017-07-19 11:27 | Outpatient (CLI) | payer OTHER ==
[2017-07-19 19:16] LABS: BASOPHILS # (AUTO) 0.1 10^3/uL (0.0-0.1); BASOPHILS % (AUTO) 0.6 %; EOSINOPHILS # (AUTO) 0.5 10^3/uL (0.0-0.7); EOSINOPHILS % (AUTO) 3.3 %; HGB - HEMOGLOBIN 13.2 g/dL (12.0-16.0); LYMPHOCYTES # (AUTO) 3.4 10^3/uL (1.5-3.5); LYMPHOCYTES % (AUTO) 22.3 %; MEAN CORPUSCULAR HGB CONC 33.3 g/dL (32.0-36.0); MEAN CORPUSCULAR VOLUME 89.9 fL (81.0-99.0); MEAN PLATELET VOLUME 8.3 fL (7.9-10.8); MONOCYTES # (AUTO) 1.1 10^3/uL (0.0-1.0); MONOCYTES % (AUTO) 7.4 %; NEUTROPHILS # (AUTO) 10.1 10^3/uL (1.5-6.6); NEUTROPHILS % (AUTO) 66.4 %; PLT - PLATELET COUNT 269 10^3/uL (130-450); RED BLOOD COUNT 4.41 10^6/uL (4.20-5.40); RED CELL DISTRIBUTION WIDTH 13.3 % (12.0-15.0); WHITE BLOOD COUNT 15.1 x10^3/uL (4.8-10.8)
[2017-07-19 19:32] LABS: ALBUMIN 4.5 g/dL (3.2-5.5); ALBUMIN/GLOBULIN RATIO 1.6 (1.0-2.2); ALKALINE PHOSPHATASE 51 IU/L (42-121); ALT ALANINE AMINOTRANSFERASE 18 IU/L (10-60); AST ASPARTATE AMINOTRANSFERASE 22 IU/L (10-42); BILIRUBIN,TOTAL 0.2 mg/dL (0.2-1.0); BUN - BLOOD UREA NITROGEN 17 mg/dL (6-20); CALCIUM 9.3 mg/dL (8.5-10.3); CARBON DIOXIDE - CO2 26 mmol/L (21-32); CHLORIDE 105 mmol/L (101-111); CREATININE 0.6 mg/dL (0.4-1.0); GFR - MDRD 120 (>89); GLUCOSE 80 mg/dL (70-100); SODIUM 138 mmol/L (135-145); TOTAL PROTEIN 7.3 g/dL (6.7-8.2)
== END 2017-07-19 11:28 | disposition home or self-care (01) ==
LOC: LAB.N 11:27
PROVIDERS: ATTEND Family Medicine
DX: R53.83 Other fatigue (principal)
CPT/HCPCS: 36415; 80053; 84443; 85025

== ENCOUNTER 2017-09-08 07:26 | Emergency (ER) | payer OTHER ==
[2017-09-08] MEDS ORDERED: IBUPROFEN 800 MG TABLET PO STA (07:59)
[2017-09-08] MEDS ORDERED: SODIUM CHLORIDE 0.9% 1,000 ML IV ONE (07:59)
--- NOTE | 2017-09-08 08:04 | ED Physician Documentation ---
History of Present Illness - Stated complaint Stated Complaint: FATIGUE - Chief complaint Chief Complaint: Abd Pain - History obtained from History obtained from: Patient - History of Present Illness Timing: How many days ago (4) Associated symptoms: Fatigue, myalgias, chills, headache, abdominal pain, nausea , diarrhea, dysuria. - Additonal information Additional information: The patient is a 26-year-old female who complains of fatigue and myalgias that has been increasing over the past 4 days. She reports chills, dizziness, and excessive thirst. She also reports headache, sore throat, slight cough without sputum production, right-sided abdominal pain, nausea with occasional vomiting, diarrhea, and dysuria. The symptom most troubling to her is the generalized body aches and fatigue. She states she does not get menstrual periods since having placement of Mirena IUD. She has history of frequent urinary tract infections, reporting up to 5 UTIs in the past year. She reports being treated with Bactrim for urinary tract infection about 3 weeks ago. Review of Systems Constitutional: reports: Chills, Myalgias, Fatigue Eyes: denies: Irritation Ears: denies: Tinnitus/ringing Nose: reports: Congestion Throat: reports: Sore throat Cardiac: denies: Chest pain / pressure Respiratory: reports: Cough (slight). denies: Dyspnea GI: reports: Abdominal Pain, Nausea, Vomiting, Diarrhea : reports: Dysuria, Control (Mirena IUD) Skin: denies: Lesions Musculoskeletal: denies: Extremity swelling Neurologic: reports: Headache. 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 Home Medications: Ambulatory Orders Medication Instructions Recorded Confirmed traZODone [Desyrel] 50 mg PO DAILY 03/17/16 03/05/17 Albuterol Sulf [Ventolin Hfa 1 - 2 puffs INH Q4HR PRN #1 inhaler 11/06/16 Inhaler] Topiramate [Topamax] 50 mg BID 11/06/16 03/05/17 lamoTRIgine [Lamotrigine] 100 mg DAILY 11/06/16 03/05/17 Ibuprofen [Motrin] 400 mg PO Q6H PRN #20 tablet 03/05/17 Ondansetron Odt [Zofran] 4 mg TL Q6H PRN #10 tablet 03/05/17 Phenazopyridine [Pyridium] 100 mg PO Q8H PRN #9 tablet 03/05/17 Sulfamethoxazole/Trimethoprim 1 each PO BID #9 tablet 03/05/17 [Bactrim 400-80 mg Tablet] traMADol [Ultram] 50 mg PO Q6H PRN #10 tablet 03/05/17 Nitrofurantoin [Macrobid] 100 mg PO BID #10 capsule 09/08/17 Phenazopyridine HCl [Pyridium] 200 mg PO TID PRN #10 tablet 09/08/17 - Allergies Allergies/Adverse Reactions: Allergies Allergy/AdvReac Type Severity Reaction Status Date / Time amoxicillin Allergy Rash Verified 09/08/17 07:39 - Social History Does the pt smoke?: No Smoking Status: Never smoker Does the pt drink ETOH?: No Does the pt have substance abuse?: No - Immunizations Immunizations are current?: Yes PD ED PE NORMAL - Vitals Vital signs reviewed: Yes (Mildly tachycardic initially.) - General General: Alert and oriented X 3, Well developed/nourished - HEENT HEENT: Atraumatic, Moist mucous membranes, Pharynx benign - Neck Neck: Supple, no meningeal sign, No adenopathy, No JVD - Cardiac Cardiac: No murmur, Other (Slightly rapid rate, regular rhythm.) - Respiratory Respiratory: No respiratory distress, Clear bilaterally - Abdomen Abdomen: Soft, No organomegaly, Other (Mild tenderness to palpation in right abdomen, without rebound tenderness or guarding.) - Back Back: No CVA TTP - Derm Derm: No rash - Extremities Extremities: No edema, No calf tenderness / cord - Neuro Neuro: Alert and oriented X 3, No motor deficit, Normal speech Results - Vitals Vitals: Oxygen O2 Source Room air - Labs Labs: Microbiology 09/08/17 08:15 Urine Culture - Preliminary Urine,Clean Catch Escherichia Coli Laboratory Tests 09/08/17 09/08/17 09/08/17 07:38 07:38 08:15 WBC 5.9 RBC 4.55 Hgb 13.8 Hct 40.0 MCV 87.9 MCH 30.3 MCHC 34.4 RDW 13.0 Plt Count 237 MPV 8.2 Neut # 3.9 Lymph # 0.8 L [place] # 0.9 Eos # 0.3 Baso # 0.0 Absolute Nucleated RBC 0.00 Nucleated RBC % 0.0 Sodium 136 Potassium 3.7 Chloride 104 Carbon Dioxide 26 Anion Gap 6.0 BUN 14 Creatinine 0.6 Estimated GFR (MDRD) 120 Glucose 88 Calcium 8.8 Total Bilirubin 0.6 AST 19 ALT 19 Alkaline Phosphatase 56 Total Protein 6.9 Albumin 4.2 Globulin 2.7 Albumin/Globulin Ratio 1.6 Lipase 20 L Urine Color YELLOW Urine Clarity SL. CLOUDY Urine pH 6.0 Ur Specific [place] >=1.030 H Urine Protein NEGATIVE Urine Glucose (UA) NEGATIVE Urine Ketones NEGATIVE Urine Occult Blood MODERATE H Urine Nitrite POSITIVE H Urine Bilirubin NEGATIVE Urine Urobilinogen 0.2 (NORMAL) Ur Leukocyte Esterase NEGATIVE Urine RBC 0-5 Urine WBC 6-10 H Ur Squamous Epith Cells FEW Squamous Urine Bacteria Many H Urine Mucus Moderate Strands Ur Microscopic Review INDICATED Urine Culture Comments INDICATED Urine HCG, Qual 09/08/17 08:15 WBC RBC Hgb Hct MCV MCH MCHC RDW Plt Count MPV Neut # Lymph # [place] # Eos # Baso # Absolute Nucleated RBC Nucleated RBC % Sodium Potassium Chloride Carbon Dioxide Anion Gap BUN Creatinine Estimated GFR (MDRD) Glucose Calcium Total Bilirubin AST ALT Alkaline Phosphatase Total Protein Albumin Globulin Albumin/Globulin Ratio Lipase Urine Color Urine Clarity Urine pH Ur Specific [place] >=1.030 H Urine Protein Urine Glucose (UA) Urine Ketones Urine Occult Blood Urine Nitrite Urine Bilirubin Urine Urobilinogen Ur Leukocyte Esterase Urine RBC Urine WBC Ur Squamous Epith Cells Urine Bacteria Urine Mucus Ur Microscopic Review Urine Culture Comments Urine HCG, Qual NEGATIVE PD MEDICAL DECISION MAKING - ED course Complexity details: reviewed old records, reviewed results, re-evaluated patient , considered differential, d/w patient ED course: The patient's presentation is significant for recurrent urinary tract infection , 3 weeks after treatment for previous urinary tract infection using trimethoprim sulfamethoxazole. Her presentation does not suggest pyelonephritis or sepsis. Treatment in the emergency department included administration of normal saline 1 L IV, nitrofurantoin 100 mg orally, and ibuprofen 800 mg orally. I discussed with her and her male car examiner the diagnosis, antibiotic treatment and outpatient follow-up, as well as potentially worrisome signs or symptoms that should prompt reevaluation in the emergency department. Departure - Departure Disposition: 01 Home, Self Care Clinical Impression: Urinary tract infection Qualifiers: Urinary tract infection type: acute cystitis Hematuria presence: without hematuria Qualified Code(s): N30.00 - Acute cystitis without hematuria Condition: Stable Instructions: ED UTI Cystitis Female Follow-Up: Ron Killian MD [Primary Care Provider] - Prescriptions: Nitrofurantoin [Macrobid] 100 mg PO BID #10 capsule Phenazopyridine HCl [Pyridium] 200 mg PO TID PRN #10 tablet PRN Reason: pain with urination Comments: Drink plenty of fluids, including cranberry juice. Take Macrobid twice daily as prescribed. You can use Pyridium as prescribed if needed for painful urination. Follow up with your primary physician within 2 weeks. Call to schedule appointment. You may want to discuss referral to urology specialist because of the frequency of your urinary tract infection. Return to the emergency department if you develop increasing pain, fever with shaking chills, persistent vomiting, or otherwise worsening symptoms. Discharge Date/Time: 09/08/17 10:33
[2017-09-08 08:09] LABS: BASOPHILS % (AUTO) 0.6 %; EOSINOPHILS # (AUTO) 0.3 10^3/uL (0.0-0.7); HGB - HEMOGLOBIN 13.8 g/dL (12.0-16.0); LYMPHOCYTES # (AUTO) 0.8 10^3/uL (1.5-3.5); MEAN CORPUSCULAR HEMOGLOBIN 30.3 pg (27.0-31.0); MEAN CORPUSCULAR HGB CONC 34.4 g/dL (32.0-36.0); MEAN CORPUSCULAR VOLUME 87.9 fL (81.0-99.0); MEAN PLATELET VOLUME 8.2 fL (7.9-10.8); MONOCYTES # (AUTO) 0.9 10^3/uL (0.0-1.0); NEUTROPHILS # (AUTO) 3.9 10^3/uL (1.5-6.6); NEUTROPHILS % (AUTO) 65.4 %; PLT - PLATELET COUNT 237 10^3/uL (130-450); RED BLOOD COUNT 4.55 10^6/uL (4.20-5.40); WHITE BLOOD COUNT 5.9 x10^3/uL (4.8-10.8)
[2017-09-08 08:18] LABS: ALBUMIN 4.2 g/dL (3.2-5.5); ALBUMIN/GLOBULIN RATIO 1.6 (1.0-2.2); BILIRUBIN,TOTAL 0.6 mg/dL (0.2-1.0); CALCIUM 8.8 mg/dL (8.5-10.3); CREATININE 0.6 mg/dL (0.4-1.0); TOTAL PROTEIN 6.9 g/dL (6.7-8.2)
[2017-09-08 08:19] LABS: BILIRUBIN,URINE NEGATIVE (NEGATIVE); GLUCOSE, URINE (UA) NEGATIVE (NEGATIVE); KETONES,URINE (UA) NEGATIVE (NEGATIVE); LEUKOCYTE ESTERASE, URINE NEGATIVE (NEGATIVE); NITRITE,URINE POSITIVE (NEGATIVE); OCCULT BLOOD,URINE MODERATE (NEGATIVE); PROTEIN,URINE NEGATIVE (NEGATIVE); UROBILINOGEN,URINE 0.2 (NORMAL) E.U./dL (NORMAL)
[2017-09-08 08:20] LABS: CLARITY,URINE SL. CLOUDY (CLEAR)
[2017-09-08 08:21] LABS: HCG UR QUAL NEGATIVE
[2017-09-08 08:28] LABS: BACTERIA,URINE Many /HPF (None Seen); MUCUS,URINE Moderate Strands; RBC,URINE 0-5 /HPF (0-5); SQUAMOUS EPITHELIAL CELL,UR FEW Squamous (<= Few)
[2017-09-08] MEDS ORDERED: NITROFURANTOIN MACRO 100 MG CAPSULE PO STA (09:35)
[2017-09-08 10:33] VITALS: BP 104/62
== END 2017-09-08 10:33 | disposition home or self-care (01) ==
LOC: ED 07:26
DX: N30.00 Acute cystitis without hematuria (principal)
CPT/HCPCS: 36415; 80053; 81001; 81025; 83690; 85025; 87086; 87181; 96360; 99283; A9270; 81003

== ENCOUNTER 2017-12-15 12:45 | Outpatient (CLI) | payer OTHER | END 2017-12-15 12:46 | disposition home or self-care (01) | LOC: LAB.R 12:45 | PROVIDERS: ATTEND Nurse Practitioner Obstetrics & Gynecology | DX: B37.3 Candidiasis of vulva and vagina (principal) | CPT/HCPCS: 87480; 87510; 87660 ==

== ENCOUNTER 2018-10-31 08:00 | Outpatient (CLI) | payer OTHER ==
[2018-10-31 23:04] LABS: CANDIDA GROUP DNA NEGATIVE (NEGATIVE); CANDIDA KRUSEI DNA NEGATIVE (NEGATIVE); TRICHOMONAS VAGINALIS DNA NEGATIVE (NEGATIVE)
== END 2018-10-31 23:59 | disposition home or self-care (01) ==
LOC: LAB.R 08:00
PROVIDERS: ATTEND Nurse Practitioner Obstetrics & Gynecology
DX: N76.0 Acute vaginitis (principal)
CPT/HCPCS: 87661; 87801